=== PATIENT | male | born 1970 | race Caucasian/White ===

== ENCOUNTER 2019-03-16 12:41 | Inpatient (IN) | payer BC ==
[2019-03-16] VITALS (11 sets, daily range): BP systolic 92–130; BP diastolic 53–95; BMI 48.4
[~2019-03-16] VITALS: Ht 193 cm; Wt 179.9 kg
[2019-03-16] MEDS ORDERED: DILTIAZEM 24HR360 M4 PO (15:42)
[2019-03-16] MEDS ORDERED: NAPROSYN500 MG PO (15:44)
[2019-03-16] MEDS ORDERED: ZYLOPRIM300 MG PO (15:45)
[2019-03-16] MEDS ORDERED: TRIAMTERENE-HC1 EAC3 PO (15:47)
[2019-03-16] MEDS ORDERED: COLCRYS0.6 MG PO (15:47)
[2019-03-16] MEDS ORDERED: PREDNISONE5 MG (15:48)
[2019-03-16] MEDS ORDERED: LOSARTAN-HCTZ PO (15:53)
--- NOTE | 2019-03-16 16:39 | NUR ---
PER DR JAMA, START INSULIN GTT ON DKA PROTOCOLS.
[2019-03-16 16:46] LABS: KETONE - SERUM SMALL mg/dL (NEGATIVE)
[2019-03-16 16:54] LABS: LIPASE 1467 U/L (73-393); PHOSPHOROUS 3.1 mg/dL (2.5-4.9)
[2019-03-16 17:04] LABS: BASOPHILS 0.2 % (0-2); EOSINOPHILS 0.2 % (0-7); HEMATOCRIT 48.2 % (42.0-54.0); HEMOGLOBIN 16.7 g/dL (13.5-17.5); IMMATURE GRANULOCYTES 0.4 % (0-5); LYMPHOCYTES 22.1 % (15-50); MCH 28.9 pg (26.0-34.0); MCHC 34.6 g/dL (31.0-37.0); MCV 83.4 fL (80.0-100.0); MEAN PLATELET VOLUME 11.7 fL (7.4-10.4); MONOCYTES 7.8 % (2-11); NEUTROPHILS 69.3 % (40-80); PLATELET COUNT 255 10x3/uL (130-400); RBC 5.78 10x6/uL (4.20-6.10); RDW 14.3 % (11.5-14.5); WBC 12.6 10x3/uL (4.8-10.8)
[2019-03-16 17:08] LABS: APTT 45.5 SECONDS (22.8-39.4); INR 1.51 (0.85-1.17); PROTIME 17.6 SECONDS (11.6-15.0)
[2019-03-16 17:13] LABS: ALBUMIN 2.9 g/dL (3.4-5.0); ANION GAP 25.1 mmol/L (8-16); BILIRUBIN - TOTAL 0.72 mg/dL (0.2-1.3); CALCIUM 7.8 mg/dL (8.5-10.1); CARBON DIOXIDE 16.5 mmol/L (21.0-32.0); CREATININE - SERUM 6.3 mg/dL (0.6-1.3); POTASSIUM - SERUM 4.6 mmol/L (3.5-5.1); PROTEIN - SERUM 6.3 g/dL (6.4-8.2)
--- NOTE | 2019-03-16 17:34 | NUR ---
DR MAJOR NOTIFIED OF CONSULT, STATED WILL SEE PT AND TO KEEP PT NPO.
--- NOTE | 2019-03-16 17:42 | NUR ---
PER DR JAMA, "I WILL DECIDE WHAT IV FLUIDS I WANT RAN WITH THE INSULIN GTT AFTER I SEE THE PENDING LAB RESULTS."
[2019-03-16 17:48] LABS: D-DIMER-QUANTITATIVE > 20.00 ug/mLFEU (0.20-0.54)
--- NOTE | 2019-03-16 17:50 | NUR ---
DDIMER GREATER THAN 20, DR JAMA NOTIFIED, STATED HE IS IN THE HOSPITAL AND WILL BE BY SHORTLY. ALSO ORDERED D5NS AT 100ML/HR.
--- NOTE | 2019-03-16 18:18 | NUR ---
PER DR JAMA, START PROCALAMINE AT 50ML/HR.
--- NOTE | 2019-03-16 19:30 | NUR ---
PT CONFUSED, ALERT TO NAME ONLY, LUNGS CLEAR, O2 @ 2L VIA N/C, RIGHT PIV X2 INTACT WITH INSULIN GTT INFUSING, CAIN PATENT TO BSD, ATTEMPTS TO CLIMB OUT OF BED AT TIMES, REDIRECTED PER STAFF, WILL CONT TO MONITOR
[2019-03-16 20:29] LABS: CALCIUM 7.9 mg/dL (8.5-10.1); CREATININE - SERUM 6.6 mg/dL (0.6-1.3)
[2019-03-16 20:30] LABS: ANION GAP 20.8 mmol/L (8-16); CARBON DIOXIDE 20.9 mmol/L (21.0-32.0); POTASSIUM - SERUM 3.7 mmol/L (3.5-5.1)
--- NOTE | 2019-03-16 21:30 | NUR ---
TEMP 102.8, GIVEN TYLENOL SUPPOSITORY, PT REMAINS CONFUSED, FAMILY AT BEDSIDE
--- NOTE | 2019-03-16 23:45 | NUR ---
PT CONFUSED, TRYING TO CLIMB OUT OF BED, CALLED DR JAMA, ORDER RECIEVED FOR GEODON 5 MG IM X1
[2019-03-17] VITALS (25 sets, daily range): BP systolic 92–149; BP diastolic 54–109
--- NOTE | 2019-03-17 01:30 | NUR ---
PT RESTING BETTER, RESTLESS AT TIMES, FAMILY MEMBER AT BEDSIDE, VITALS STABLE
--- NOTE | 2019-03-17 03:16 | NUR ---
PT PULLING AT LINES, REMINDED FREQUENTLY NOT TO PULL AT LINES, VITALS STABLE, REMAINS CONFUSED
[2019-03-17 03:34] LABS: BASOPHILS 0.2 % (0-2); EOSINOPHILS 0.4 % (0-7); HEMATOCRIT 45.1 % (42.0-54.0); HEMOGLOBIN 15.8 g/dL (13.5-17.5); IMMATURE GRANULOCYTES 0.5 % (0-5); LYMPHOCYTES 17.2 % (15-50); MCH 29.3 pg (26.0-34.0); MCV 83.5 fL (80.0-100.0); MEAN PLATELET VOLUME 11.8 fL (7.4-10.4); MONOCYTES 6.9 % (2-11); NEUTROPHILS 74.8 % (40-80); PLATELET COUNT 248 10x3/uL (130-400); RDW 14.6 % (11.5-14.5); WBC 12.2 10x3/uL (4.8-10.8)
[2019-03-17 03:55] LABS: ALBUMIN 2.6 g/dL (3.4-5.0); ANION GAP 20.4 mmol/L (8-16); BILIRUBIN - TOTAL 0.66 mg/dL (0.2-1.3); CALCIUM 8.1 mg/dL (8.5-10.1); CARBON DIOXIDE 20.4 mmol/L (21.0-32.0); CREATININE - SERUM 6.8 mg/dL (0.6-1.3); POTASSIUM - SERUM 3.8 mmol/L (3.5-5.1)
[2019-03-17 04:00] LABS: INR 1.35 (0.85-1.17); PROTIME 16.2 SECONDS (11.6-15.0)
--- NOTE | 2019-03-17 05:30 | NUR ---
pt resting quietly, remains confused to time place and situation, repositions self frequently, no distress noted
--- NOTE | 2019-03-17 07:24 | NUR ---
PT LYING IN BED AWAKE AT THIS TIME. PT NOTED CONFUSED AND RESTLESS STATING, "I NEED A DRINK OF WATER, I NEED ICE CREAM." PT IS NPO PER SURGEON, PT NOTIFIED OF THIS, PT THEN STATED HE HAS BEEN HERE FOR OVER 24 HOURS ALREADY AND HE NEEDS TO SEE THE DOCTORS. PT NOTIFIED THAT HE ARRIVED TO THIS HOSPITAL YESTERDAY AT 1519, AND THAT THE DOCTORS WILL BE HERE TO SEE HIM SOON. PT ALSO NOTED TO STATE "I AM BURNING UP!" PT THEN IMMEDIATELY STATED "I AM FREEZING." PT NOTED CONFUSED. ABLE TO STATE NAME AND THAT HE IS [place]. PT CONFUSED TO SITUATION AND WHEN PT WAS ASKED YEAR HE STATED "75 YEARS." REORIENTATION ATTEMPTED TO BE PROVIDED WITHOUT SUCCESS. AFTER PT FINISHES TALKING WITH STAFF HE WENT BACK TO SLEEP. EYES CLOSED, RESPIRATIONS STEADY AND UNLABORED. AWAKENS EASILY WHEN SPOKEN TO. VSS. ALSO IS ON INSULIN GTT PER DKA PROTOCOL, TITRATED PER PROTOCOL, SEE DKA IV FLOWSHEET FOR MORE INFORMATION. BED ALARM ON, CALL LIGHT IN REACH. WILL CONTINUE TO CLOSELY OBSERVE.
--- NOTE | 2019-03-17 07:45 | NUR ---
PT CONFUSED AT THIS TIME, STATING "I CAN'T GET MY HEAD ON MY HEAD, I WANT TO GET UP AND WALK." EDUCATION PROVIDED TO PT REGARDING DIAGNOSIS AND THAT IF HE GOT UP HE COULD FALL. REORIENTATION ALSO ATTEMPTED TO BE PROVIDED WITHOUT SUCCESS. PT ARGUMENTIVE, LIGHTS TURNED DOWN IN ROOM TO HELP DECREASE STIMULATION TO HELP PT RELAX. PT BEGINNING TO CALM DOWN. WILL NOTIFY PHYSICIAN AND CONTINUE TO CLOSELY OBSERVE.
[2019-03-17 07:56] LABS: ANION GAP 18.5 mmol/L (8-16); CALCIUM 8.1 mg/dL (8.5-10.1); CARBON DIOXIDE 21.2 mmol/L (21.0-32.0); CREATININE - SERUM 6.9 mg/dL (0.6-1.3); MAGNESIUM - SERUM 1.9 mg/dL (1.8-2.4); POTASSIUM - SERUM 3.7 mmol/L (3.5-5.1)
--- NOTE | 2019-03-17 08:16 | NUR ---
DR JAMA UPDATED REGARDING PTS CONFUSION WITH AGGITATION. NO NEW ORDERS RECIEVED. STATED WE WILL CONTINUE TO WATCH HIM. WILL CONTINUE TO OBSERVE.
--- NOTE | 2019-03-17 08:47 | NUR ---
AT BEDSIDE AT THIS TIME. UPDATES PROVIDED. PT CURRENTLY CALM AT THIS TIME RESTING WITH EYES CLOSED. WILL WAKE UP AT TIMES STILL CONFUSED, REORIENTATION PROVIDED. VSS. WILL CONTINUE PLAN OF CARE.
--- NOTE | 2019-03-17 11:32 | NUR ---
PER DR MAJOR, PT IS NPO BUT CAN HAVE VERY SMALL AMOUNTS OF ICE CHIPS AT TIMES. ALSO NOTED PT COMPLAINT OF ABDOMINAL DISCOMFORT WHICH OCCURS WHEN HE TRIED TO REPOSITION, THE DISCOMFORT AREA IS EPIGASTRIC AND LT UPPER QUADRANT. PER DR MAJOR, THIS PAIN LOCATION IS THE EXPECTED PAIN LOCATION FOR HIS DIAGNOSED PANCREATITIS. AT BEDSIDE. NO ACUTE DISTRESS NOTED. PT ALSO AT THIS TIME REQUESTED BED POTTS STATED HE FEELS LIKE HE NEEDS TO HAVE A BOWEL MOVEMENT, PROVIDED. VSS. WILL CONTINUE TO CLOSELY OBSERVE.
[2019-03-17 11:58] LABS: ANION GAP 18.1 mmol/L (8-16); CALCIUM 8.2 mg/dL (8.5-10.1); CARBON DIOXIDE 22.6 mmol/L (21.0-32.0); CREATININE - SERUM 6.9 mg/dL (0.6-1.3); POTASSIUM - SERUM 3.7 mmol/L (3.5-5.1)
--- NOTE | 2019-03-17 13:19 | NUR ---
CONSULT FOR DR ALSTON NOTED, PAGED AT THIS TIME.
--- NOTE | 2019-03-17 15:26 | NUR ---
BOLUS X 1 OF NS COMPLETE AT THIS TIME PER DR ALSTON ORDERS. PT AWAKE IN BED VISITING WITH MOTHER AND . NO ACUTE DISTRESS NOTED. STILL CONFUSED AT TIMES, REORIENTATION PROVIDED. VSS. WILL CONTINUE PLAN OF CARE.
[2019-03-17 16:00] LABS: APPEARANCE HAZY (CLEAR); COLOR YELLOW (YELLOW); NITRITE NEGATIVE (NEGATIVE); PROTEIN 2+ mg/dL (NEGATIVE)
[2019-03-17 16:01] LABS: BILIRUBIN NEGATIVE (NEGATIVE); GLUCOSE 250 mg/dL (NEGATIVE); KETONE NEGATIVE (NEGATIVE); UROBILINOGEN NORMAL (NORMAL)
[2019-03-17 16:03] LABS: BACTERIA FEW /hpf (NONE SEEN); EPITHELIAL CELLS 0-5 /hpf (0-5); WHITE CELLS - URINE 0-5 /hpf (0-5)
[2019-03-17 16:20] LABS: POTASSIUM - URINE 58.3 MMOL/L (12.0-62.0); PROTEIN - URINE 184.3 mg/dL (0.0-11.9)
[2019-03-17 16:21] LABS: CREATININE - URINE 298.5 mg/dL (30-125); PRO/CRE RATIO URINE 0.6 mg/g
--- NOTE | 2019-03-17 16:54 | NUR ---
UP IN BED VISITING WITH FAMILY AT THIS TIME. NO ACUTE DISTRESS NOTED. VSS. PT IN PLEASANT MOOD, LAUGHING AND SMILING WITH FAMILY. STILL REQUIRES ORIENTATION AT TIMES, BUT PT APPEARS LESS CONFUSED AND LESS AGGITATED AT THIS TIME. WILL CONTINUE TO CLOSELY OBSERVE.
--- NOTE | 2019-03-17 17:57 | NUR ---
CHG BATH AND TOTAL LINEN CHANGE PROVIDED AT THIS TIME. ORAL CARE ALSO PROVIDED. NO ACUTE DISTRESS NOTED. VSS. WILL CONTINUE PLAN OF CARE.
--- NOTE | 2019-03-17 19:30 | NUR ---
PT AROUSES EASILY, CONFUSED BUT ORIENTS EASILY, RIGHT AC PIV INTACT AND PATENT, O2 @ 2L VIA N/C, CAIN PATENT TO BSD, VITALS STABLE, NOTED SOME DYSPNEA WHILE ASLEEP
--- NOTE | 2019-03-17 21:30 | NUR ---
pt awakens for short periods and returns to sleep, voices needs, no distress noted
--- NOTE | 2019-03-17 23:24 | NUR ---
pt awake, voices needs, no changes noted from initial assessment
[2019-03-18] VITALS (23 sets, daily range): BP systolic 104–161; BP diastolic 56–114; Ht 193 cm; Wt 179.9 kg
--- NOTE | 2019-03-18 01:30 | NUR ---
PT AWAKE IN BED, WATCHING TV, GIVEN OCASSIONAL ICE CHIP P.O., VOICES NEEDS APPROPRIATELY, VITALS STABLE
--- NOTE | 2019-03-18 03:13 | NUR ---
PT ASLEEP, NO DISTRESS NOTED, WILL CONT TO MONITOR
[2019-03-18 03:55] LABS: BASOPHILS 0.2 % (0-2); EOSINOPHILS 3.1 % (0-7); HEMATOCRIT 37.9 % (42.0-54.0); HEMOGLOBIN 12.7 g/dL (13.5-17.5); IMMATURE GRANULOCYTES 0.6 % (0-5); LYMPHOCYTES 15.3 % (15-50); MCH 28.5 pg (26.0-34.0); MCHC 33.5 g/dL (31.0-37.0); MEAN PLATELET VOLUME 11.8 fL (7.4-10.4); MONOCYTES 8.5 % (2-11); NEUTROPHILS 72.3 % (40-80); PLATELET COUNT 233 10x3/uL (130-400); RBC 4.46 10x6/uL (4.20-6.10); WBC 11.3 10x3/uL (4.8-10.8)
[2019-03-18 04:04] LABS: INR 1.4 (0.85-1.17); PROTIME 16.6 SECONDS (11.6-15.0)
[2019-03-18 04:14] LABS: ALBUMIN 2.2 g/dL (3.4-5.0); ANION GAP 15.3 mmol/L (8-16); BILIRUBIN - TOTAL 0.58 mg/dL (0.2-1.3); CALCIUM 8.1 mg/dL (8.5-10.1); CARBON DIOXIDE 23.4 mmol/L (21.0-32.0); CREATININE - SERUM 6.3 mg/dL (0.6-1.3); POTASSIUM - SERUM 3.7 mmol/L (3.5-5.1)
[2019-03-18 04:16] LABS: PHOSPHOROUS 3.6 mg/dL (2.5-4.9)
--- NOTE | 2019-03-18 05:33 | NUR ---
PT SLEEPING WITHOUT DISTRESS, AROUSES EASILY, DROWSY, VITALS STABLE
--- NOTE | 2019-03-18 07:00 | NUR ---
REC'D REPORT AND RESUMED CARE, AWAKE AND CONFUSED, FOLLOWS DIRECTIONS, VSS, O2 VIA NC, CAIN TO GRAVITY WIT PARTH DRAINAGE, ASSESSMENT COMPLETED PER FLOWSHEET, CALL LIGHT IN REACH, NO NEEDS A THIS TIME
--- NOTE | 2019-03-18 08:15 | NUR ---
CALLED TO ROOM, 100 CC YELLOWISH/GREEN EMESIS TO POTTS, ORAL CARE GIVEN, COOL TOWEL TO BACK OF NECK,
--- NOTE | 2019-03-18 09:00 | NUR ---
MORNING MEDS GIVEN WITHOUT DIFFICULTY, PER MAR ORDER
--- NOTE | 2019-03-18 11:00 | NUR ---
RESTING WITH NO SIGNS OF DISTRESS, VSS, DENIES PAIN, CLINICAL SCIENCES PROFESSOR IN USE, NO ACUTE CHANGE FROM PREVIOUS ASSESSMENT
--- NOTE | 2019-03-18 12:00 | NUR ---
MOTHER AND BROTHER HER FROM [place], STATUS UPDATED, AWAITING TO SPEAK WITH MD'S, STATUS UPDATED, VOICES NO OTHER NEEDS AT THIS TIME
--- NOTE | 2019-03-18 14:27 | NUR ---
DR ALSTON HERE FOR EVAL, IVF CHANGED TO 1/2NS AT 125
--- NOTE | 2019-03-18 20:00 | NUR ---
PT A/OX4, LUNGS CLEAR, O2 @ 2L VIA N/C, RIGHT PIV INTACT AND PATENT, LEFT PIV INTACT AND PAYTON MERA PATENT TO BSD, NO C/O @ THIS TIME
--- NOTE | 2019-03-18 22:00 | NUR ---
RESTING QUIETLY ON BIPAP, NO DISTRESS, VITALS STABLE
[2019-03-19] VITALS (25 sets, daily range): BP systolic 116–186; BP diastolic 72–111
--- NOTE | 2019-03-19 00:31 | NUR ---
PT SLEEPING WITHOUT DISTRESS, O2 @ 2L VIA N/C
--- NOTE | 2019-03-19 02:15 | NUR ---
PT SLEEPING, AROUSES EASILY, VITALS STABLE
--- NOTE | 2019-03-19 04:00 | NUR ---
PT UP TO BS, HAS GAS BUT NO BM, NO C/O @ THIS TIME
--- NOTE | 2019-03-19 05:28 | NUR ---
PT RESTING, AROUSES EASILY, NO DISTRESS NOTED
--- NOTE | 2019-03-19 06:16 | NUR ---
PT SLEEPING, SPOUSE AT BEDSIDE, NO CHANGES NOTED
[2019-03-19 07:50] LABS: BASOPHILS 0.1 % (0-2); EOSINOPHILS 3.9 % (0-7); HEMATOCRIT 34.5 % (42.0-54.0); HEMOGLOBIN 11.9 g/dL (13.5-17.5); IMMATURE GRANULOCYTES 1.6 % (0-5); LYMPHOCYTES 14.1 % (15-50); MCHC 34.5 g/dL (31.0-37.0); MCV 83.9 fL (80.0-100.0); MEAN PLATELET VOLUME 11.3 fL (7.4-10.4); NEUTROPHILS 70.3 % (40-80); PLATELET COUNT 252 10x3/uL (130-400); RBC 4.11 10x6/uL (4.20-6.10); RDW 15.3 % (11.5-14.5); WBC 10.2 10x3/uL (4.8-10.8)
[2019-03-19 08:12] LABS: ALBUMIN 2.2 g/dL (3.4-5.0); BILIRUBIN - TOTAL 0.61 mg/dL (0.2-1.3); CALCIUM 8.6 mg/dL (8.5-10.1); CARBON DIOXIDE 20.8 mmol/L (21.0-32.0); INR 1.35 (0.85-1.17); PHOSPHOROUS 3.4 mg/dL (2.5-4.9); POTASSIUM - SERUM 3.6 mmol/L (3.5-5.1); PROTEIN - SERUM 6.2 g/dL (6.4-8.2); PROTIME 16.1 SECONDS (11.6-15.0); THYROID STIMULATING HORMONE 0.21 uIU/mL (0.36-3.74)
[2019-03-19 08:15] LABS: ANION GAP 16.8 mmol/L (8-16); CREATININE - SERUM 4.5 mg/dL (0.6-1.3)
--- NOTE | 2019-03-19 08:33 | NUR ---
DR ALSTON AT BEDSIDE, CLEARED PATIENT TO DRINK WATER RE: NA LEVEL HIGH, UPDATED TO POC
--- NOTE | 2019-03-19 10:30 | NUR ---
CHG BATH AND LINEN CHANGE COMPLETED, ASSISTED BY TRINA, TOLERATED WITHOUT DIFFICULTY
--- NOTE | 2019-03-19 11:49 | NUR ---
RIGHT AC PIV DC'D WITH CATHETER INTACT GAUZE DRESSING APPLIED
--- NOTE | 2019-03-19 12:40 | NUR ---
DR MEJIA AT BEDSIDE, SPOKE WITH AND MOTHER IN DETAIL RE: CURRENT POC, THEY VERBALIZED UNDERSTANDING, NO OTHER NEEDS AT THIS TIME
--- NOTE | 2019-03-19 14:17 | NUR ---
BP 177/112 5MG METOPROLOL IVP GIVEN PER PRN ORDER, C/O STOMACH WITH FEELING LIGHT ZOFRAN 4MG GIVEN PER PRN ORDER,
--- NOTE | 2019-03-19 14:44 | NUR ---
VASCULAR ACCES NURSE AT BEDSIDE.
--- NOTE | 2019-03-19 15:52 | NUR ---
PATIENT SLEEPING. NO DISTRESS NOTED. DENIES NEEDS. WILL CONTINUE TO MONITOR
--- NOTE | 2019-03-19 17:00 | NUR ---
patient resting. family at bedside. no distress at this time. water provided to patient. fan on. will continue to monitor
--- NOTE | 2019-03-19 19:30 | NUR ---
PT SLEEPING, ASSESSMENT COMPLETED, AROUSES EASILY, NO C/O
--- NOTE | 2019-03-19 19:33 | MORECARE ---
CASE MANAGEMENT DISCHARGE SUMMARY PATIENT: PRANAY GONZALEZ UNIT: [id number] ADM DATE: 03/16/19 AGE: 48 : 70 SEX: M ROOM/BED: D.2304 AUTHOR: CHATA BARR PHYSICIAN: REFERRING PHYSICIAN: SAMEER JAMA MD DATE OF SERVICE: 03/19/19 Discharge Plan Patient Name: PRANAY GONZALEZ [facility] [facility] 1970 Planned Disposition: Anticipated Discharge Date: Discharge Date: Expected LOS: Initial Reviewer: [email or web address] Initial Review Date: 03/16/2019 Generated: 03/19/19 8:33 pm Patient Name: PRANAY GONZALEZ Page [id number] at 1933 All edits/amendments must be made on the electronic document DICTATION DATE: 03/19/191932 FISHING GAME WARDEN: WAI 03/19/191932 RPT#: [id number] DC DATE: STATUS: ADM IN [facility] [address] [place] [address] END OF REPORT
--- NOTE | 2019-03-19 19:41 | MORECARE ---
CASE MANAGEMENT DISCHARGE SUMMARY PATIENT: PRANAY GONZALEZ UNIT: [id number] ADM DATE: 03/16/19 AGE: 48 : 70 SEX: M ROOM/BED: D.2304 AUTHOR: CHATA BARR PHYSICIAN: REFERRING PHYSICIAN: SAMEER JAMA MD DATE OF SERVICE: 03/19/19 Discharge Plan Patient Name: PRANAY GONZALEZ [facility] [facility] 1970 Planned Disposition: Anticipated Discharge Date: Discharge Date: Expected LOS: Initial Reviewer: [email or web address] Initial Review Date: 03/16/2019 Generated: 03/19/19 8:40 pm Comments DCP- Discharge Planning Updated by [email or web address]: Milena Velasco on 03/19/19 6:[address] CM attempted to visit with patient regarding d/c planning. Patient would not stay awake to for interview. CM will come back at later time to evaluate discharge planning /needs. CM will continue to follow and assist as needed with discharge planning / needs. Last DP export: 03/19/19 6:33 pm Patient Name: PRANAY GONZALEZ Page [phone] at 1941 All edits/amendments must be made on the electronic document DICTATION DATE: 03/19/191939 SAND POLISHER: WAI 03/19/191939 RPT#: [id number] DC DATE: STATUS: ADM IN [facility] [address] [place] [address] END OF REPORT
--- NOTE | 2019-03-19 21:30 | NUR ---
REMAINS ASLEEP, VITALS STABLE, WILL CONT TO MONITOR
--- NOTE | 2019-03-19 23:30 | NUR ---
PT B/P ELEVATED, CALLED ANIBAL KRAMER, ORDERS RECIEVED, PT AWAKE WATCHING TV, GIVEN HYDRALAZINE 10 MG IV
[2019-03-20] VITALS (25 sets, daily range): BP systolic 128–192; BP diastolic 70–124
--- NOTE | 2019-03-20 01:30 | NUR ---
PT AWAKE WATCHING TV, HOB @ 45 DEGREES, VITALS STABLE
--- NOTE | 2019-03-20 03:18 | NUR ---
PT ASLEEP, VITALS STABLE, NO DISTRESS NOTED
[2019-03-20 03:57] LABS: BASOPHILS 0.2 % (0-2); EOSINOPHILS 3.1 % (0-7); HEMATOCRIT 33.8 % (42.0-54.0); HEMOGLOBIN 11.5 g/dL (13.5-17.5); IMMATURE GRANULOCYTES 1.8 % (0-5); LYMPHOCYTES 13.5 % (15-50); MCH 28.8 pg (26.0-34.0); MCV 84.5 fL (80.0-100.0); MEAN PLATELET VOLUME 11.6 fL (7.4-10.4); MONOCYTES 11.1 % (2-11); NEUTROPHILS 70.3 % (40-80); PLATELET COUNT 285 10x3/uL (130-400); RDW 15.2 % (11.5-14.5); WBC 9.6 10x3/uL (4.8-10.8)
[2019-03-20 04:15] LABS: INR 1.32 (0.85-1.17); PROTIME 15.8 SECONDS (11.6-15.0)
[2019-03-20 04:20] LABS: ALBUMIN 2.1 g/dL (3.4-5.0); BILIRUBIN - TOTAL 0.53 mg/dL (0.2-1.3); CALCIUM 8.6 mg/dL (8.5-10.1); CARBON DIOXIDE 22.8 mmol/L (21.0-32.0); PHOSPHOROUS 2.9 mg/dL (2.5-4.9); POTASSIUM - SERUM 3.5 mmol/L (3.5-5.1); PROTEIN - SERUM 6.1 g/dL (6.4-8.2)
[2019-03-20 04:23] LABS: ANION GAP 15.7 mmol/L (8-16); CREATININE - SERUM 3.1 mg/dL (0.6-1.3)
--- NOTE | 2019-03-20 05:22 | NUR ---
PT SLEEPING WITHOUT DISTRESS, INFUSING POTASSIUM RIDER PER ELECTROLYTE PROTCOL
--- NOTE | 2019-03-20 07:20 | NUR ---
REPORT RECEIVED. ASSESSMENT COMPLETE PER FLOW SHEET. VSS. NO NEW CHANGES WILL CONTINUE TO MONITOR
--- NOTE | 2019-03-20 09:54 | NUR ---
NUTRITION F/U CHART REVIEWED, PT VISIT. SPOKE WITH PT BRIEFLY ~ DIABETES, CARBOHYDRATES, ETC. PT WOULD LIKE FOR SPOUSE TO BE PRESENT WHEN DIABETIC EDU PROVIDED. WILL CHECK BACK TOMORROW. PT UP TO CHAIR WITH PROCALAMINE AT 50 CC/HR. CURRENTLY NPO. RD FOLLOWING
--- NOTE | 2019-03-20 13:20 | NUR ---
DR SIBLEY AT BEDSIDE VSS NO NEW CHANGES WILL CONTINUE TO MONITOR
--- NOTE | 2019-03-20 15:00 | NUR ---
REASSESSMENT COMPLETE PER FLOW SHEET. VSS. NO NEW CHANGES WILL CONTINUET OM ONITOR
--- NOTE | 2019-03-20 19:00 | NUR ---
PT REPORT RECEIVED FROM DAY SHIFT NURSE. VSS. WILL CONTINUE TO MONITOR
--- NOTE | 2019-03-20 19:02 | MORECARE ---
CASE MANAGEMENT DISCHARGE SUMMARY PATIENT: PRANAY GONZALEZ UNIT: [id number] ADM DATE: 03/16/19 AGE: 48 : 70 SEX: M ROOM/BED: D.2304 AUTHOR: CHATA BARR PHYSICIAN: REFERRING PHYSICIAN: SAMEER JAMA MD DATE OF SERVICE: 03/20/19 Discharge Plan Patient Name: PRANAY GONZALEZ Facility: [facility]:[place] : 1970 Planned Disposition: Anticipated Discharge Date: Discharge Date: Expected LOS: Initial Reviewer: [email or web address] Initial Review Date: 03/20/2019 Generated: 03/20/19 8:01 pm Comments DCP- Discharge Planning Updated by [email or web address]: Milena Velasco on 03/19/19 6:[address] CM attempted to visit with patient regarding d/c planning. Patient would not stay awake to for interview. CM will come back at later time to evaluate discharge planning /needs. CM will continue to follow and assist as needed with discharge planning / needs. DCPIA - Discharge Planning Initial Assessment Updated by [email or web address]: Milena Velasco on 03/20/19 6:59 pm * Is the patient Alert and Oriented? Yes * How many steps to enter\exit or inside your home? * PCP OREN [facility] * [facility]acy [facility] * Preadmission Environment Home with Family * ADLs Independent * Equipment CPAP * Community resources currently utilized None * Additional services required to return to the preadmission environment? No * Can the patient safely return to the preadmission environment? Yes * Has this patient been hospitalized within the prior 30 days at any hospital? No Last DP export: 03/19/19 6:41 pm Patient Name: PRANAY GONZALEZ Page [phone] at 1902 All edits/amendments must be made on the electronic document DICTATION DATE: 03/20/191900 CARPET INSTALLER: WAI 03/20/191900 RPT#: [id number] DC DATE: STATUS: ADM IN [facility] [address] [place] [address] END OF REPORT
--- NOTE | 2019-03-20 19:08 | MORECARE ---
CASE MANAGEMENT DISCHARGE SUMMARY PATIENT: PRANAY GONZALEZ UNIT: [id number] ADM DATE: 03/16/19 AGE: 48 : 70 SEX: M ROOM/BED: D.2304 AUTHOR: MOMO,DOC PHYSICIAN: REFERRING PHYSICIAN: SAMEER JAMA MD DATE OF SERVICE: 03/20/19 Discharge Plan Patient Name: PRANAY GONZALEZ Facility: [facility]:[employer] : 1970 Planned Disposition: Anticipated Discharge Date: Discharge Date: Expected LOS: Initial Reviewer: [email or web address] Initial Review Date: 03/20/2019 Generated: 03/20/19 8:08 pm Comments DCP- Discharge Planning Updated by [email or web address]: Milena Velasco on 03/20/19 6:[address] Patient Name: PRANAY GONZALEZ Admission Status: Elective Accout number: [id number] Admission Date: 03-16-2019 : 1970 Admission Diagnosis:TYPE 2 DIABETES MELLITUS WITH KETOACIDOSIS WITHOUT COMA Attending: SAMEER JAMA Current LOS: 4 Anticipated DC Date: Planned Disposition: Primary Insurance: frintit Discharge Planning Comments: CM met with patient at bedside after explaining CM role and obtaining verbal consent. Patient lives at home with his TRINA where he is independent with his care and plans to return there upon discharge. Patient feels this would be a safe discharge. CM discussed availability / needs of home health and medical equipment. Patient stated that he thinks he may need HH for PT. Patient states he didn't realize how weak he was until PT got him up today. SINDHU signed Patient denies any other discharge needs at this time. Patient states he will have his family drive him home upon discharge. CM will continue to follow and assist as needed with discharge planning / needs. Head Mechanic: Milena Velasco DCP- Discharge Planning Updated by [email or web address]: Milena Velasco on 03/19/19 6:[address] CM attempted to visit with patient regarding d/c planning. Patient would not stay awake to for interview. CM will come back at later time to evaluate discharge planning /needs. CM will continue to follow and assist as needed with discharge planning / needs. DCPIA - Discharge Planning Initial Assessment Updated by [email or web address]: Milena Velasco on 03/20/19 6:59 pm * Is the patient Alert and Oriented? Yes * How many steps to enter\exit or inside your home? * PCP [facility]EN [facility] * [facility]acy [facility] * Preadmission Environment Home with Family * ADLs Independent * Equipment CPAP * Community resources currently utilized None * Additional services required to return to the preadmission environment? No * Can the patient safely return to the preadmission environment? Yes * Has this patient been hospitalized within the prior 30 days at any hospital? No Last DP export: 03/20/19 6:02 pm Patient Name: PRANAY GONZALEZ Page [id number] at 1908 All edits/amendments must be made on the electronic document DICTATION DATE: 03/20/191907 [address] PRODUCTION: WAI 03/20/191907 RPT#: [id number] DE DATE: STATUS: ADM IN [facility] [address] [place] [address] END OF REPORT
--- NOTE | 2019-03-20 21:00 | NUR ---
FAMILY AT PT BEDSIDE. VSS. NO COMPLAINTS NOTED AT THIS TIME. WILL CONTINUE TO MONITOR
--- NOTE | 2019-03-20 23:00 | NUR ---
PT RESTING IN BED. NURSE REMOVED PERIPHERAL IV FROM RIGHT HAND. PT TOLERATED WELL. NO SIGNS OF DISTRESS. VSS. WILL CONTINUE TO MONITOR
[2019-03-21] VITALS (24 sets, daily range): BP systolic 152–203; BP diastolic 70–135
--- NOTE | 2019-03-21 01:00 | NUR ---
PT RESTING IN BED. NO COMPLAINTS NOTED AT THIS TIME. WILL CONTINUE TO MONITOR
--- NOTE | 2019-03-21 03:00 | NUR ---
PT RESTING IN BED. NO SIGNS OF DISTRESS NOTED. VSS. WILL CONTINUE TO MONITOR
--- NOTE | 2019-03-21 05:00 | NUR ---
PT UP AT BEDSIDE. VSS. BLOOD PRESSURE STEADILY INCREASING WILL CONTINUE TO MONITOR
[2019-03-21 05:06] LABS: ALBUMIN 2.3 g/dL (3.4-5.0); ANION GAP 16.8 mmol/L (8-16); BILIRUBIN - TOTAL 0.42 mg/dL (0.2-1.3); CALCIUM 8.5 mg/dL (8.5-10.1); MAGNESIUM - SERUM 1.8 mg/dL (1.8-2.4); POTASSIUM - SERUM 3.8 mmol/L (3.5-5.1); PROTEIN - SERUM 6.7 g/dL (6.4-8.2)
[2019-03-21 05:07] LABS: BASOPHILS 0.3 % (0-2); EOSINOPHILS 2.5 % (0-7); HEMATOCRIT 35.2 % (42.0-54.0); HEMOGLOBIN 11.9 g/dL (13.5-17.5); IMMATURE GRANULOCYTES 4.1 % (0-5); LYMPHOCYTES 15.2 % (15-50); MCH 28.5 pg (26.0-34.0); MCHC 33.8 g/dL (31.0-37.0); MCV 84.4 fL (80.0-100.0); MEAN PLATELET VOLUME 11.6 fL (7.4-10.4); MONOCYTES 12.6 % (2-11); NEUTROPHILS 65.3 % (40-80); PLATELET COUNT 369 10x3/uL (130-400); RBC 4.17 10x6/uL (4.20-6.10); RDW 15.4 % (11.5-14.5); WBC 9.3 10x3/uL (4.8-10.8)
[2019-03-21 05:10] LABS: INR 1.37 (0.85-1.17); PROTIME 16.3 SECONDS (11.6-15.0)
[2019-03-21 05:12] LABS: CREATININE - SERUM 2.3 mg/dL (0.6-1.3)
--- NOTE | 2019-03-21 06:07 | NUR ---
CALLED ANIBAL AGGARWAL ABOUT BLOOD PRESSURE. ORDER RECEIVED FOR CLONIDINE.
--- NOTE | 2019-03-21 07:00 | NUR ---
SHIFT ASSESSMENT COMPLETED. PT CARE ASSUMED. MONITORS ON AND WORKING, ELEVATED BP NOTED, PT AWAKE AND ALERT, CALL LIGHT WITHIN REACH, SEE FLOW SHEET FOR FURTHER DETAILS. WILL CONTINUE TO OBSERVE.
--- NOTE | 2019-03-21 09:00 | NUR ---
NO CHNAGES. PT TOLERATING CLEAR LIQUID DIET WELL. FAMILY AT BEDSIDE, UPDATE PROVIDED. MONITORS ON AND WORKING, VITALS STABLE, CALL LIGHT WITHIN REACH.
--- NOTE | 2019-03-21 10:30 | NUR ---
NUTRITION F/U PT UP TO CHAIR. SPOUSE AND MOM IN ATTENDANCE. PROVIDED DIABETIC DIET EDU TO PT AND FAMILY. ANSWERED ALL QUESTIONS. ENCOURAGED PT TO FOLLOW UP WITH DIABETIC EDU AFTER DISCHARGE. RD FOLLOWING
--- NOTE | 2019-03-21 11:00 | NUR ---
FSBS ELEVATED, AWARE, NEW ORDERS REC'D AND FOLLOWED. PT CONTINUES TO TOLERATE CLEAR LIQUID DIET WELL, CALL LIGHT WITHIN REACH, SEE FLOW SHEET FOR FURTHER DETAILS. WILL CONTINUE TO OBSERVE.
--- NOTE | 2019-03-21 13:00 | NUR ---
PT UP IN CHAIR AT BEDSIDE, MONITORS ON AND WORKING, VITALS STABLE. CALL LIGHT WITHIN REACH, WILL CONTINUE TO OBSERVE.
--- NOTE | 2019-03-21 15:00 | NUR ---
NO CHANGES, SEE FLOW SHEET FOR FURTHER DETAILS. WILL CONTINUE TO OBSERVE.
--- NOTE | 2019-03-21 17:00 | NUR ---
FSBS IMPROVING, IVF D5 INFUSING AT 40ML/HR. MONITORS ON AND WORKING, VITALS STABLE. FAMILY AT BEDSIDE, CALL LIGHT WITHIN REACH, WILL CONTINUE TO OBSERVE.
--- NOTE | 2019-03-21 19:00 | NUR ---
PT REPORT RECEIVED FROM DAY SHIFT NURSE. NO COMPLAINTS NOTED AT THIS TIME. WILL CONTINUE TO MONITOR
[2019-03-21 19:17] LABS: ANION GAP 17.7 mmol/L (8-16); CALCIUM 8.6 mg/dL (8.5-10.1); CARBON DIOXIDE 22.2 mmol/L (21.0-32.0); POTASSIUM - SERUM 3.9 mmol/L (3.5-5.1)
--- NOTE | 2019-03-21 21:00 | NUR ---
PT RESTING IN BED. VSS. WILL CONTINUE TO MONITOR
--- NOTE | 2019-03-21 23:00 | NUR ---
PT RESTING IN BED WATCHING TV. NO COMPLAINTS NOTED AT THIS TIME. VSS. WILL CONTINUE TO MONITOR
[2019-03-22] VITALS (14 sets, daily range): BP systolic 131–190; BP diastolic 56–120
--- NOTE | 2019-03-22 01:05 | NUR ---
PT RESTING IN BED. AROUSES EASILY. VSS. WILL CONTINUE TO MONITOR
--- NOTE | 2019-03-22 03:00 | NUR ---
PT RESTING IN BED WATCHING TV. VSS. WILL CONTINUE TO MONITOR
--- NOTE | 2019-03-22 05:00 | NUR ---
PT RESTING IN BED. AROUSED EASILY. WILL CONTINUE TO MONITOR
[2019-03-22 07:37] LABS: CALCIUM 8.5 mg/dL (8.5-10.1); CARBON DIOXIDE 24.4 mmol/L (21.0-32.0); CREATININE - SERUM 1.8 mg/dL (0.6-1.3); PHOSPHOROUS 3.7 mg/dL (2.5-4.9); POTASSIUM - SERUM 3.4 mmol/L (3.5-5.1)
[2019-03-22 07:43] LABS: BASOPHILS 0.2 % (0-2); EOSINOPHILS 3.4 % (0-7); HEMATOCRIT 34.8 % (42.0-54.0); HEMOGLOBIN 11.5 g/dL (13.5-17.5); IMMATURE GRANULOCYTES 3.9 % (0-5); LYMPHOCYTES 18.2 % (15-50); MCH 28.5 pg (26.0-34.0); MEAN PLATELET VOLUME 10.7 fL (7.4-10.4); MONOCYTES 14.6 % (2-11); NEUTROPHILS 59.7 % (40-80); PLATELET COUNT 353 10x3/uL (130-400); RBC 4.03 10x6/uL (4.20-6.10); RDW 15.9 % (11.5-14.5); WBC 9.4 10x3/uL (4.8-10.8)
[2019-03-22 07:46] LABS: MCV 86.4 fL (80.0-100.0)
--- NOTE | 2019-03-22 14:11 | NUR ---
PT TO ROOM 2215 FROM ICU VIA WHEELCHAIR. FAMILY AT BEDSIDE.OTIRNTATION TO ROOM.CALL LIGHT IN REACH.
--- NOTE | 2019-03-22 15:36 | NUR ---
IV LEFT AC DCD WITH CATH TIP INTACT. IV HAS BEEN LEAKING SINCE EARLY AM PER PT.
--- NOTE | 2019-03-22 18:40 | NUR ---
DENIES NEEDS AT PRESENT. DID COMPLAIN OF PAIN AND BURNING OF MOUTH WHEN EATING DINNER. YOGURT FROM KITCHEN FOR PT.HE IS WITHOUT CHANGE.CONT PLAN OF CARE
--- NOTE | 2019-03-22 19:15 | NUR ---
RECEIVED CARE FROM DAY NRUSE. IN BED WITH FAMILY AT SIDE. NO IV. NO NEEDS VOICED AT THIS TIME. CALL LIGHT AT SIDE.
[2019-03-23] VITALS: BP 146/88
--- NOTE | 2019-03-23 00:31 | NUR ---
I have reviewed this patient and I concur with the Shift Assessment completed by the Licensed Practical Nurse today this shift.
--- NOTE | 2019-03-23 02:36 | NUR ---
C/O HAVING A NOSE BLEED AND FEELING VERY HOT. NOSE BLEED STOPPED AT THIS TIME. WET RAG AND FAN GIVEN. FSBS 154. THIS IS MUCH LOWER THEN PATIENTS NORMAL. PEANUT BUTTER GIVEN TO SEE IF SYMPTOMS ELEVIATE.
[2019-03-23 05:51] LABS: BASOPHILS 0.2 % (0-2); EOSINOPHILS 2.5 % (0-7); HEMATOCRIT 35.2 % (42.0-54.0); HEMOGLOBIN 11.6 g/dL (13.5-17.5); LYMPHOCYTES 17.7 % (15-50); MCH 28.5 pg (26.0-34.0); MCV 86.5 fL (80.0-100.0); MEAN PLATELET VOLUME 10.8 fL (7.4-10.4); MONOCYTES 10.5 % (2-11); NEUTROPHILS 67.1 % (40-80); PLATELET COUNT 387 10x3/uL (130-400); RBC 4.07 10x6/uL (4.20-6.10); RDW 15.7 % (11.5-14.5); WBC 10.2 10x3/uL (4.8-10.8)
[2019-03-23 05:52] LABS: ANION GAP 14.6 mmol/L (8-16); CALCIUM 8.7 mg/dL (8.5-10.1); CARBON DIOXIDE 24.1 mmol/L (21.0-32.0); CREATININE - SERUM 1.6 mg/dL (0.6-1.3); PHOSPHOROUS 3.7 mg/dL (2.5-4.9); POTASSIUM - SERUM 3.7 mmol/L (3.5-5.1)
[2019-03-23 08:13] VITALS: BP 135/76
[2019-03-23 13:03] LABS: AMYLASE - SERUM 43 U/L (25-115); LIPASE 241 U/L (73-393)
[2019-03-23 13:21] VITALS: BP 109/64
[2019-03-23 16:11] VITALS: BP 149/87
--- NOTE | 2019-03-23 18:37 | NUR ---
SPOKE WITH DR. JAMA ON PHONE. AFTER MULTIPLE FAILED ATTEMPTS TO OBTAIN IV FOR CT SCAN; DR JAMA SAID TO CANCEL IF NO IV CAN BE OBTAINED.
--- NOTE | 2019-03-23 18:45 | NUR ---
PATIENT IN BED WITH NO COMPLAINTS. TRIED TO START IV EARLIER X 3 TRIES, DARRYL MORAES TRIED 1 TIME AND ENZO GIBBONS TRIED [address] TECHS. NO QUESTIONS AT THIS TIME. CALL LIGHT WITHIN REACH.
--- NOTE | 2019-03-23 19:15 | NUR ---
RECEIVED CARE FROM DAY NURSE. LYING IN BED ON SIDE. EYES CLOSED. RESP EVEN AND UNLABORED. CALL LIGHT AT SIDE. NO IV. COMPANY AT SIDE.
--- NOTE | 2019-03-23 19:28 | NUR ---
PATIENT TRIED TO TAKE MAG CITRATE BUT HE SAID IT DWYER HIS MOUTH DUE TO THRUSH. EXPLAINED HE STILL HAS THE 2 SUPP. THAT PHYSICIAN ORDERED. VERBALIZED UNDERSTANDING. STATE HE WOULD US THEM LATER TONIGHT.
[2019-03-23 19:55] VITALS: BP 156/87
[2019-03-24] VITALS (7 sets, daily range): BP systolic 89–160; BP diastolic 58–97
--- NOTE | 2019-03-24 00:18 | NUR ---
I have reviewed this patient and I concur with the Shift Assessment completed by the Licensed Practical Nurse today this shift.
[2019-03-24 06:10] LABS: BASOPHILS 0.1 % (0-2); EOSINOPHILS 2.5 % (0-7); HEMATOCRIT 34.9 % (42.0-54.0); HEMOGLOBIN 11.7 g/dL (13.5-17.5); IMMATURE GRANULOCYTES 1.8 % (0-5); LYMPHOCYTES 17.9 % (15-50); MCH 29.2 pg (26.0-34.0); MCHC 33.5 g/dL (31.0-37.0); MEAN PLATELET VOLUME 10.8 fL (7.4-10.4); MONOCYTES 6.2 % (2-11); NEUTROPHILS 71.5 % (40-80); PLATELET COUNT 386 10x3/uL (130-400); RBC 4.01 10x6/uL (4.20-6.10); RDW 15.5 % (11.5-14.5); WBC 11.7 10x3/uL (4.8-10.8)
[2019-03-24 06:23] LABS: ANION GAP 14.8 mmol/L (8-16); CALCIUM 8.2 mg/dL (8.5-10.1); CARBON DIOXIDE 26.5 mmol/L (21.0-32.0); CREATININE - SERUM 1.5 mg/dL (0.6-1.3); PHOSPHOROUS 3.1 mg/dL (2.5-4.9); POTASSIUM - SERUM 3.3 mmol/L (3.5-5.1)
--- NOTE | 2019-03-24 07:15 | NUR ---
RESTING IN BED, EYES CLOSED. FAMILY AT BEDSIDE. RESPIRATIONS EVEN AND UNLABORED. DENIES ANY NEEDS AT THIS TIME. CALL LIGHT IN REACH. WILL CONTINUE TO MONITOR.
--- NOTE | 2019-03-24 18:26 | NUR ---
ALERT AND ORIENTED, RESTING IN BED. PT DENIES ANY NEEDS. CALL LIGHT IN REACH. WILL CONTINUE TO MONITOR.
--- NOTE | 2019-03-24 18:45 | NUR ---
I have reviewed this patient and I concur with the Shift Assessment completed by the Licensed Practical Nurse today this shift.
--- NOTE | 2019-03-24 19:15 | NUR ---
PT ALERT AND ORIENTED WHEN ENTERING THE ROOM. PT HAS NO IV AT THIS TIME. LUNGS CLEAR TO AUSCULTATION. DISCUSSED WITH PATIENT ABOUT NEW DIAGNOSIS OF DIABETES. PATIENT STATES THAT HE IS "WORRIED" ABOUT IT AND PROVIDED EDUCATION FOR PATIENT. DENIES ANY PAIN OR DISCOMFORT. HAS CALL LIGHT AND USES APPROPRIATELY. CPOC.
--- NOTE | 2019-03-25 03:54 | NUR ---
PT REMAINS AWAKE THROUGH OUT NIGHT. PROVIDED DIABETIC INFORMATION.SPOKE WITH PATIENT ABOUT DISEASE PROCESS. ENCOURAGED TO ENGAGE IN DIABETES EDUCATION AFTER D/C.
[2019-03-25 04:00] VITALS: BP 104/68
[2019-03-25 05:40] LABS: BASOPHILS 0.2 % (0-2); EOSINOPHILS 2.1 % (0-7); HEMATOCRIT 34.6 % (42.0-54.0); HEMOGLOBIN 11.3 g/dL (13.5-17.5); IMMATURE GRANULOCYTES 1.4 % (0-5); LYMPHOCYTES 15.9 % (15-50); MCH 28.3 pg (26.0-34.0); MCHC 32.7 g/dL (31.0-37.0); MCV 86.5 fL (80.0-100.0); MEAN PLATELET VOLUME 10.9 fL (7.4-10.4); MONOCYTES 4.2 % (2-11); NEUTROPHILS 76.2 % (40-80); PLATELET COUNT 433 10x3/uL (130-400); RDW 15.2 % (11.5-14.5); WBC 12.7 10x3/uL (4.8-10.8)
[2019-03-25 06:03] LABS: ANION GAP 14.1 mmol/L (8-16); CALCIUM 8.8 mg/dL (8.5-10.1); CARBON DIOXIDE 25.2 mmol/L (21.0-32.0); CREATININE - SERUM 1.4 mg/dL (0.6-1.3); PHOSPHOROUS 3.3 mg/dL (2.5-4.9); URIC ACID 4.5 mg/dL (2.6-7.2)
[2019-03-25 06:05] LABS: POTASSIUM - SERUM 3.3 mmol/L (3.5-5.1)
[2019-03-25 08:00] VITALS: BP 151/86
--- NOTE | 2019-03-25 09:30 | NUR ---
PATIENT VOMITED. ZOFRAN GIVEN SUBLINGUAL. BACK TO BED. LINENS CHANGED BY CG KASI. CL IN REACH. DIET SPRITE AND WATER GIVEN. PATIENT CO BEING DIZZY. SALTINE CRACKERS GIVEN WELL.
[2019-03-25 11:40] LABS: CHOL - HDL RATIO 5.2 ratio (2.3-4.9); LDL-HDL RATIO 3.1 ratio (1.5-3.5)
[2019-03-25 12:35] LABS: APPEARANCE CLEAR (CLEAR); BACTERIA FEW /hpf (NONE SEEN); BILIRUBIN NEGATIVE (NEGATIVE); COLOR YELLOW (YELLOW); EPITHELIAL CELLS 0-5 /hpf (0-5); GLUCOSE 500 mg/dL (NEGATIVE); GRANULAR CAST RARE /lpf (NONE SEEN); KETONE MODERATE mg/dL (NEGATIVE); MUCUS <1+ /lpf (NONE SEEN); NITRITE NEGATIVE (NEGATIVE); PROTEIN TRACE mg/dL (NEGATIVE); RED CELLS - URINE OCC /hpf (0-5); SPECIFIC GRAVITY 1.015 (1.005-1.020); UROBILINOGEN NORMAL (NORMAL); WHITE CELLS - URINE RARE /hpf (0-5)
[2019-03-25 12:38] VITALS: BP 143/83
--- NOTE | 2019-03-25 13:08 | NUR ---
Nutrition follow-up: Diet: ADA consistent CHO PO Intake has decreased to ~25% of meals 2/2 now c/o painful swallow labs reviewed; glucose under better control Wt: 396# EGD scheduled. RDN following.
--- NOTE | 2019-03-25 19:20 | NUR ---
PT SITTING UP IN BED WITHOUT DISTRESS, AOX4. IV RIGHT HAND SL. DENIES NAUSEA AT THIS TIME. COMPLAINS OF PAIN TO MOUTH, WHITE PATCHES NOTED IN MOUTH AND THROAT. DNIES OTHER NEEDS. CL IN REACH, WILL CTM
[2019-03-25 20:28] VITALS: BP 108/53
--- NOTE | 2019-03-25 21:30 | NUR ---
ASSISTED PT IN SETTING UP FOR SHOWER. WRAPPED IV TO KEEP DRY. PT SHOWERED WITHOUT DIFFICULTY. DENIES OTHER NEEDS. WILL CTM
--- NOTE | 2019-03-25 23:15 | NUR ---
FSBS 148, NO COVERAGE PER SS
[2019-03-26 01:17] VITALS: BP 140/79
[2019-03-26 04:59] VITALS: BP 154/80
[2019-03-26 06:44] LABS: BASOPHILS 0.3 % (0-2); EOSINOPHILS 2.5 % (0-7); HEMATOCRIT 36.8 % (42.0-54.0); IMMATURE GRANULOCYTES 1.1 % (0-5); MCH 28.2 pg (26.0-34.0); MCHC 32.6 g/dL (31.0-37.0); MCV 86.4 fL (80.0-100.0); MEAN PLATELET VOLUME 10.6 fL (7.4-10.4); MONOCYTES 4.4 % (2-11); NEUTROPHILS 74.7 % (40-80); PLATELET COUNT 440 10x3/uL (130-400); RBC 4.26 10x6/uL (4.20-6.10); RDW 14.8 % (11.5-14.5); WBC 12.1 10x3/uL (4.8-10.8)
[2019-03-26 06:47] LABS: ANION GAP 12.4 mmol/L (8-16); CARBON DIOXIDE 28.2 mmol/L (21.0-32.0); CREATININE - SERUM 1.4 mg/dL (0.6-1.3); POTASSIUM - SERUM 3.6 mmol/L (3.5-5.1)
--- NOTE | 2019-03-26 07:26 | NUR ---
ALERT AND ORIENTED. LUNGS CLEAR BILATERALLY IN ALL BELLE. HEART SOUNDS S1 AND S2 HEARD IN ALL BELLE. BOWEL SOUNDS ACTIVE X 4. SKIN INTACT WITHOUT REDNESS. IV TO RIGHT HAND PATENT WITHOUT REDNESS. DENIES PAIN. DENIES NEEDS. STATES WANTS TO DISCHARGE TODAY. WILL TALK TO CONDUIT BENDER THIS AM. BED LOW. CALL DUNN AND PERSONAL ITEMS IN REACH. WILL CONTINUE TO MONITOR.
[2019-03-26 08:07] VITALS: BP 150/77
--- NOTE | 2019-03-26 09:24 | NUR ---
IV OUT TO RIGHT HAND. DOES NOT WANT IV SITED D/T WANTS TO DISCHARGE TODAY.
[2019-03-26] MEDS ORDERED: PROTONIX40 MG PO (11:11)
[2019-03-26] MEDS ORDERED: Nystatin Oral Susp [ PO (11:11)
[2019-03-26] MEDS ORDERED: COLACE100 MG PO (11:11)
[2019-03-26] MEDS ORDERED: FLORAJEN3 CAPS460 MG PO (11:11)
[2019-03-26] MEDS ORDERED: CARAFATE1 G PO (11:11)
[2019-03-26] MEDS ORDERED: LISINOPRIL5 MG PO (11:12)
[2019-03-26] MEDS ORDERED: NORVASC5 MG PO (11:12)
[2019-03-26] MEDS ORDERED: DIFLUCAN100 MG PO (11:12)
[2019-03-26] MEDS ORDERED: METOPROLOL TART50 MG PO (11:12)
[2019-03-26] MEDS ORDERED: GLUCOPHAGE XR750 MG PO (11:17)
[2019-03-26] MEDS ORDERED: GLYBURIDE5 M1 PO (11:17)
--- NOTE | 2019-03-26 11:55 | NUR ---
SITTING IN CHAIR AT BEDSIDE. DENIES NEEDS. WILL CONTINUE TO MONITOR.
--- NOTE | 2019-03-26 12:00 | MORECARE ---
CASE MANAGEMENT DISCHARGE SUMMARY PATIENT: PRANAY GONZALEZ UNIT: [id number] ADM DATE: 03/16/19 AGE: 48 : 70 SEX: M ROOM/BED: D.2215 AUTHOR: CHATA BARR PHYSICIAN: REFERRING PHYSICIAN: SAMEER JAMA MD DATE OF SERVICE: 03/26/19 Discharge Plan Patient Name: PRANAY GONZALEZ Facility: [facility]:[place] : 1970 Planned Disposition: Anticipated Discharge Date: Discharge Date: Expected LOS: Initial Reviewer: [email or web address] Initial Review Date: 03/20/2019 Generated: 03/26/19 1:00 pm Comments DCP- Discharge Planning Updated by [email or web address]: Naty Sigala on 03/26/19 10:[address] Met with patient to assess dc planning needs. He denies any HH needs. Script for Glucometer will be given at DC. Patient is on her way to drive him home. 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 Patient lives at home with his TRINA where he is independent with his care and plans to return there upon discharge. Patient feels this would be a safe discharge. CM discussed availability / needs of home health and medical equipment. Patient stated that he thinks he may need HH for PT. Patient states he didn't realize how weak he was until PT got him up today. SINDHU signed Patient denies any other discharge needs at this time. Patient states he will have his family drive him home upon discharge. CM will continue to follow and assist as needed with discharge planning / needs. Brake Assembler: Milena Velasco DCP- Discharge Planning Updated by [email or web address]: Milena Velasco on 03/19/19 6:[address] CM attempted to visit with patient regarding d/c planning. Patient would not stay awake to for interview. CM will come back at later time to evaluate discharge planning /needs. CM will continue to follow and assist as needed with discharge planning / needs. DCPIA - Discharge Planning Initial Assessment Updated by [id number] Velasco on 03/20/19 6:59 pm * Is the patient Alert and Oriented? Yes * How many steps to enter\exit or inside your home? * PCP [facility] * [facility]acy [facility] * Preadmission Environment Home with Family * ADLs Independent * Equipment CPAP * Community resources currently utilized None * Additional services required to return to the preadmission environment? No * Can the patient safely return to the preadmission environment? Yes * Has this patient been hospitalized within the prior 30 days at any hospital? No Coverage Notice Reviewer: [email or web address] Devendra Velasco Notice Issued Date-Time: 03/20/2019 14:15 Notice Type: Patient Choice Letter Notice Delivered To: Patient Relationship to Patient: Self E Learning Designer Name: Delivery Method: - Suzy Days: Prior Verbal Notification: Recipient Understood Notice: Recipient Signature: Med Rec Note Co-signed by Attending: Coverage Notice Comment: Last DP export: 03/20/19 6:08 pm Patient Name: PRANAY GONZALEZ Page [id number] at 1200 All edits/amendments must be made on the electronic document DICTATION DATE: 03/26/19 1200 MS SQL DBA: WAI 03/26/19 1200 RPT#: [id number] DC DATE: STATUS: ADM IN [facility] [address] [place] [address] END OF REPORT
--- NOTE | 2019-03-26 12:47 | NUR ---
DISCHARGE EDUCATION PROVIDED BOTH WRITTEN AND VERBAL. VERBALIZED UNDERSTANDING. DENIES FURTHER QUESTIONS. THOROUGH EDUCATION PROVIDED ON DIABETES AND DIABETIC DIET WELL DIABETIC MEDICATIONS. DENIES FURTHER QUESTIONS. NO IV TO REMOVE. 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 WILL CONTINUE TO MONITOR.
[2019-03-26 13:27] VITALS: BP 146/89
--- NOTE | 2019-03-26 13:45 | NUR ---
[facility] PAPERWORK FILLED OUT BY DR JAMA AND FAXED TO PATIENT'S WORKPLACE.
--- NOTE | 2019-03-26 14:57 | NUR ---
PATIENT DISCHARGED HOME WITH ALL BELONGINGS.
--- NOTE | 2019-03-29 12:43 | MORECARE ---
CASE MANAGEMENT DISCHARGE SUMMARY PATIENT: PRANAY GONZALEZ UNIT: [id number] ADM DATE: 03/16/19 AGE: 48 : 70 SEX: M ROOM/BED: D.2215 AUTHOR: CHATA BARR PHYSICIAN: REFERRING PHYSICIAN: SAMEER JAMA MD DATE OF SERVICE: 03/29/19 Discharge Plan Patient Name: PRANAY GONZALEZ Facility: [facility]:[place] : 1970 Planned Disposition: Anticipated Discharge Date: Discharge Date: 03/26/2019 Expected LOS: 0 Initial Reviewer: [email or web address] Initial Review Date: 03/20/2019 Generated: 03/29/19 1:43 pm Comments DCP- Discharge Planning Updated by [email or web address]: Naty Sigala on 03/26/19 10:[address] Met with patient to assess dc planning needs. He denies any HH needs. Script for Glucometer will be given at DC. Patient is on her way to drive him home. CM to follow and assist as needed DCP- Discharge Planning Updated by [email or web address]: Milena Velasco on 03/20/19 6:[address] Patient Name: PRANAY GONZALEZ Admission Status: Elective Accout number: [id number] Admission Date: 03-16-2019 : 1970 Admission Diagnosis:TYPE 2 DIABETES MELLITUS WITH KETOACIDOSIS WITHOUT COMA Attending: SAMEER JAMA Current LOS: 4 Anticipated DC Date: Planned Disposition: Primary Insurance[place] [employer] [facility] [place] Planning Comments: CM met with patient at bedside after explaining CM role and obtaining verbal consent. Patient lives at home with his TRINA where he is independent with his care and plans to return there upon discharge. Patient feels this would be a safe discharge. CM discussed availability / needs of home health and medical equipment. Patient stated that he thinks he may need HH for PT. Patient states he didn't realize how weak he was until PT got him up today. SINDHU signed Patient denies any other discharge needs at this time. Patient states he will have his family drive him home upon discharge. CM will continue to follow and assist as needed with discharge planning / needs. Truck Hopper: Milena Velasco DCP- Discharge Planning Updated by [email or web address] Velasco on 03/19/19 6:[address] CM attempted to visit with patient regarding d/c planning. Patient would not stay awake to for interview. CM will come back at later time to evaluate discharge planning /needs. CM will continue to follow and assist as needed with discharge planning / needs. DCPIA - Discharge Planning Initial Assessment Updated by [email or web address] Velasco on 03/20/19 6:59 pm * Is the patient Alert and Oriented? Yes * How many steps to enter\exit or inside your home? * PCP [facility] * [facility] * Preadmission Environment Home with Family * ADLs Independent * Equipment CPAP * Community resources currently utilized None * Additional services required to return to the preadmission environment? No * Can the patient safely return to the preadmission environment? Yes * Has this patient been hospitalized within the prior 30 days at any hospital? No Coverage Notice Reviewer: [email or web address] Devendra Velasco Notice Issued Date-Time: 03/20/2019 14:15 Notice Type: Patient Choice Letter Notice Delivered To: Patient Relationship to Patient: Self Lead Inspector Name: Delivery Method: - Suzy Days: Prior Verbal Notification: Recipient Understood Notice: Recipient Signature: Med Rec Note Co-signed by Attending: Coverage Notice Comment: Last DP export: 03/26/19 11:01 a Patient Name: PRANAY GONZALEZ Page 10186 at 1243 All edits/amendments must be made on the electronic document DICTATION DATE: 03/29/19 1243 FASHION PATTERNMAKER: WAI 03/29/19 1243 RPT#: [id number] DC DATE:03/26/19 STATUS: DIS IN [facility] [address] [place] [address] END OF REPORT
== END 2019-03-26 15:35 | disposition home or self-care (01) | DRG 637 ==
LOC: D.ICU 12:41 → D.MS 15:20 → D.ICU 03-19 13:11 → D.MS 03-22 14:04
PROVIDERS: Family Medicine; Internal Medicine; Internal Medicine Nephrology; ADMIT Internal Medicine Nephrology; ATTEND Internal Medicine Nephrology
DX: E11.10 Type 2 diabetes mellitus with ketoacidosis without coma (principal); K85.90 Acute pancreatitis without necrosis or infection, unspecified; G92 Toxic encephalopathy; N17.0 Acute kidney failure with tubular necrosis; K72.00 Acute and subacute hepatic failure without coma; J96.01 Acute respiratory failure with hypoxia; E87.0 Hyperosmolality and hypernatremia; K86.89 Other specified diseases of pancreas; K75.81 Nonalcoholic steatohepatitis (NASH); Q53.10 Unspecified undescended testicle, unilateral; G47.33 Obstructive sleep apnea (adult) (pediatric); M10.9 Gout, unspecified; I10 Essential (primary) hypertension; E66.01 Morbid (severe) obesity due to excess calories; R00.0 Tachycardia, unspecified; E78.5 Hyperlipidemia, unspecified; E66.9 Obesity, unspecified